=== PATIENT | female | born 1985 | race Caucasian/White ===

== ENCOUNTER → 2016-11-05 | Day surgery (SDC) | payer OTHER ==
[2008-04-18 17:48] VITALS: BP 133/69
--- NOTE | 2016-11-05 10:25 | Operative Report ---
See Addendum Operative/Inv Procedure Report Surgery Date: 11/05/16 Name of Procedure: LAPAROSCOPY LEFT OVARIAN CYSTECTOMY Pre-Operative Diagnosis: ENLARGING, SYMPTOMATIC LEFT OVARIAN CYST. Post-Operative Diagnosis: SAME Estimated Blood Loss: scant Surgeon/Global Compensation Director: GIORGI MG DO, MD Anesthesia: general endotracheal tube IV Fluids: 900ml Urine Output: Not measured Drains: NONE Specimens: LEFT OVARIAN CYST Complications: None Condition: GOOD Operative Indication: 31 YEAR OLD FEMALE WITH ENLARGING , SYMPTOMATIC LEFT OVARIAN CYST. NOW 7.7CM WITH SLIGHTLY COMPLEX APPEARANCE .PLAN IS TO PROCEED WITH LAPAROSCOPY, LEFT OVARIAN CYSTECTOMY. POSSIBLE OOPHERECTOMY, POSSIBLE LAPAROTOMY. REVIEWED RISK OF BLEEDING, INFECTION, INJURY TO OTHER ORGANS, NEED FOR ADDITIONAL PROCEDURES SHOULD COMPLICATION OCCUR , POSSIBLE OOPHERECTOMY, POSSIBLE LAPAROTOMY. QUESTIONS ANSWERED AND DESIRES TO PROCEED. Operative/Procedure Note Note: THE PATIENT WAS TAKEN TO THE OPERATING ROOM WHERE ANESTHESIA WAS OBTAINED WITHOUT DIFFICULTY. SHE WAS PLACED IN THE DORSAL LITHOTOMY POSITION AND EXAMINED UNDER ANESTHESIA. SHE WAS THEN PREPPED AND DRAPED IN THE USUAL STERILE FASHION. A GRAVES SPECULUM WAS PLACED IN THE VAGINA AND ANTERIOR LIP OF CERVIX WAS GRASPED WITH A SINGLE TOOTHED TENACULUM. A ACORN MANIPULATOR WAS THEN INSERTED. SPECULUM REMOVED. Garcia catheter was inserted and left in place during the procedure. Attention was then turned to the patient's abdomen where a 5 mm infraumbilical skin incision was made with a scalpel. Veress needle was inserted while tenting the abdominal wall. Saline drop test was suggestive of intra-abdominal placement. Opening pressure of 8 mmHg was noted. Pneumoperitoneum was then obtained with 3-1/2 L of CO2 gas. Veress needle was removed and a 5 mm trocar was then inserted without difficulty while tenting the abdominal wall. Intra-abdominal placement was then confirmed with laparoscope. Uterus was visualized and noted to be within normal limits. Right fallopian tube and ovary were within normal limits. Left adnexa was obscured and posterior to the uterus at this time. I then visualized the liver edge which was within normal limits. A small omental adhesion to the midline. A 5 mm skin incision was made in the left lower quadrant and a 11 mm incision was made in the right lower quadrants and trochars were inserted under direct visualization. A small amount of bleeding was noted from the right lower quadrant sleeve which was observed throughout the remainder of the case. Graspers and the uterine manipulator were used to manipulate the left adnexa which was brought up and placed into the anterior cul-de-sac she had a quite large simple and benign appearing cyst of the left ovary. The left fallopian tube and fimbria were adhered to the surface of the ovary. I approximated to be about 7-10 cm in size. It was smooth and without any excrescences. No calcifications or solid components were noted. My plan was to aspirate the cyst in order to remove it laparoscopically. First the small omental adhesion was taken down with the LigaSure device. This was noted. A needle was introduced through the left lower quadrant incision while the left adnexa was grasped and clear fluid was aspirated. At least 60 mL was obtained. There was still a moderate amount of fluid. Needle aspirate was removed and a small incision was made in the cyst with scissors in order to make the incision bigger and a suction record pressman was introduced and the remainder of the fluid was suctioned. After further evaluation of the fluid appeared to have a slightly mucinous component. This was suggestive of perhaps a benign serous cystadenoma. Because of the possibility of it being a tumor and the adherence of the left fallopian tube to the ovary, I decided to excise the cyst with the fallopian tube and ovary as well. The left adnexa was grasped and the LigaSure device was used to cauterize and cut the left infundibulopelvic ligament and mesosalpinx in order to completely excise the left fallopian tube and ovary. The left ureter was evaluated and noted to be peristalsing. Excellent hemostasis was noted. I again evaluated the pelvis. She had a normal-appearing anterior cul-de-sac without adhesions or lesions, she had a normal-appearing posterior cul-de-sac without adhesions or lesions. The right fallopian tube and ovary was evaluated and noted to be within normal limits. The small bleeding that was noted earlier at the right lower quadrant port was hemostatic. Bilateral lower quadrant sleeves were removed under direct visualization while the pneumoperitoneum was reduced to evaluate for bleeding. Excellent hemostasis was noted. Primary umbilical trocar was removed under direct visualization. The right lower quadrant fascia was reapproximated 0 Vicryl all skin incisions were closed with 3-0 Biosyn. Garcia catheter and tenaculum and acorn manipulator were removed without difficulty. All sponge, lap counts, needle counts were correct 2. Excellent hemostasis had been noted and the patient was taken to the recovery area in stable condition. The cyst fluid as well as the left fallopian tube and ovary were sent for pathology. Findings: Evaluation under anesthesia revealed a small anteverted uterus, enlarged left adnexal mass, Intraoperative findings revealed an enlarged 7-10 cm benign appearing cystic mass of the left ovary. It was smooth and without excrescences or solid components. Cyst fluid had a slightly mucinous component. Left fallopian tube was adhered to the surface of the left ovary. Normal-appearing right fallopian tube and right ovary. Appearing liver edge, small midline omental adhesion. Discharge Disposition: PACU Additional Comments: Findings were relayed to the patient and her via the telephone while she was recovering in PACU.
== END ==
LOC: STS 02:22
DX: D27.1 Benign neoplasm of left ovary (principal); K66.0 Peritoneal adhesions (postprocedural) (postinfection); N85.4 Malposition of uterus; R10.2 Pelvic and perineal pain; Z87.891 Personal history of nicotine dependence
CPT/HCPCS: 81025; 88305; 88307; J1200; J2250; J2405